=== PATIENT | male | born 1980 | race Caucasian/White ===

== ENCOUNTER 2024-07-10 23:43 | Emergency (ER) | payer BC ==
[2024-07-11] MEDS: Lidocaine 1% with EPINEPHrine 1:100,000 20 ML MDV INJECT ONE (00:20)
[2024-07-11] MEDS: Amoxicillin 500 MG Cap PO ONE (00:35)
[2024-07-11] MEDS: Bacitracin Oint 1 GM U/D Packet TOP ONE (00:35)
[2024-07-11] MEDS: Diphtheria,Pertussis(Acell),Tetanus Vaccine 0.5 ML Syringe IM ONE (00:35)
[2024-07-11] MEDS: Lidocaine 1% with EPINEPHrine 1:100,000 50 ML MDV INFILT ONE (06:27)
== END 2024-07-11 00:40 | disposition home or self-care (01) ==
LOC: LB.ED 23:43
DX: S50.852A Superficial foreign body of left forearm, initial encounter (principal); W45.8XXA Other foreign body or object entering through skin, initial encounter
CPT/HCPCS: 90471; 90715; 99283; A9270-GY; J2004